=== PATIENT | female | born 1990 | race Caucasian/White ===

== ENCOUNTER 2016-10-19 20:04 | Emergency (ER) | payer OTHER ==
[2016-10-19 20:12] VITALS: BP 158/88
--- NOTE | 2016-10-19 20:59 | UC ---
Complaint Female HPI - HPI Summary HPI Summary: takes Provera for DUB--Last dose was now has a very heavy mensural flow and cramping-- - History Of Current Complaint Chief Complaint: UCGU Stated Complaint: PERSONAL Time Seen by Provider: 10/19/16 20:41 Hx Obtained From: Patient Hx Last Menstrual Period: current ?: No Onset/Duration: Sudden Onset, Lasting Days, Still Present Timing: Constant Severity Initially: Moderate Severity Currently: Moderate Pain Intensity: 8 Pain Scale Used: 0-10 Numeric Character: Cramping Aggravating Factor(s): Nothing Alleviating Factor(s): Nothing Associated Signs And Symptoms: Positive: Vaginal Bleeding/Discharge Related Hx: Similar Episode/Dx as: - chronic DUB, - 1, Para - 1 - Allergies/Home Medications Allergies/Adverse Reactions: Allergies Allergy/AdvReac Type Severity Reaction Status Date / Time No Known Allergies Allergy Verified 10/19/16 20:38 Home Medications: Home Medications Medroxyprogesterone Acetate [Medroxyprogesterone Aceta] 10 mg PO DAILY 10/19/16 [History Confirmed 10/19/16] Naproxen [Naproxen EC 500 MG TAB] PO BID PRN 10/19/16 [History] PMH/Surg Hx/FS Hx/Imm Hx Previously Healthy: No - DUB - Surgical History Surgical History: Yes Surgery Procedure, Year, and Place: left knee chipped cartilage repair - Family History Known Family History: Positive: None Family History: no cardio vascular issues reported in family lineage - Social History Occupation: Employed Full-time Lives: With Family Alcohol Use: None Substance Use Type: None Smoking Status (MU): Light Every Day Tobacco Smoker Type: Cigarettes Amount Used/How Often: 5 cigarettes daily Length of Time of Smoking/Using Tobacco: 7 YEARS Have You Smoked in the Last Year: Yes Household Exposure Type: Cigarettes Cessation Counseling: Counseled 3+Min - 10 Min - Immunization History Most Recent Influenza Vaccination: 02/16/15 Review of Systems Constitutional: Negative Skin: Negative Eyes: Negative ENT: Negative Respiratory: Negative Cardiovascular: Negative Gastrointestinal: Abdominal Pain - cramping Genitourinary: Negative Motor: Negative Neurovascular: Negative Musculoskeletal: Negative Neurological: Negative Psychological: Negative All Other Systems Reviewed And Are Negative: Yes Physical Exam Triage Information Reviewed: Yes Appearance: Well-Appearing, No Pain Distress, Well-Nourished Vital Signs: Initial Vital Signs Temp 98.6 F 10/19/16 20:07 Pulse 93 10/19/16 20:07 Resp 18 10/19/16 20:07 BP 158/88 10/19/16 20:07 Pulse Ox 100 10/19/16 20:07 Vital Signs Reviewed: Yes Eye Exam: Normal Eyes: Positive: Conjunctiva Clear. Negative: Conjunctiva Inflamed ENT Exam: Normal ENT: Positive: Normal ENT inspection, Hearing grossly normal. Negative: Nasal congestion, Nasal drainage, Trismus, Muffled/hoarse voice Dental Exam: Normal Neck exam: Normal Neck: Positive: Supple, Nontender Respiratory Exam: Normal Respiratory: Positive: Chest non-tender, No respiratory distress, No accessory muscle use Cardiovascular Exam: Normal Cardiovascular: Positive: RRR, Pulses Normal, Brisk Capillary Refill Abdominal Exam: Normal Abdomen Description: Positive: No Organomegaly, Soft, Other: - lower abdomen. Negative: CVA Tenderness (R), CVA Tenderness (L) Bowel Sounds: Positive: Present Musculoskeletal Exam: Normal Musculoskeletal: Positive: Strength Intact, ROM Intact, No Edema Neurological Exam: Normal Neurological: Positive: Alert, Muscle Tone Normal Psychological Exam: Normal Skin Exam: Normal Complaint Female Dx - Course Course Of Treatment: patient refused hormones-will take pain meds and follow with [facility] on Friday - Differential Dx/Diagnosis Differential Diagnosis/HQI/PQRI: Ovarian Cyst, Pelvic Inflammatory Disease, , Sexually Transmitted Disease, Other - DUB Provider Diagnoses: Dysfunctional Uterine Bleeding, Nicotine dependent Discharge - Discharge Plan Condition: Stable Disposition: HOME Prescriptions: HYDROcodone/ACETAMIN 5-325 MG* [Brusett 5-325 TAB*] 1 tab PO Q6H PRN #10 tab MDD 4 PRN Reason: Pain Patient Education Materials: Naproxen (By mouth), Dysfunctional Uterine Bleeding (ED), DASH Eating Plan (ED), Hypertension (ED) Forms: *Work Release Referrals: Renetta Yoder NP [Nurse Practitioner] - 10/21/16 Kole Gray MD [Primary Care Provider] - 2 Weeks
[2016-10-19] MEDS ORDERED: Ketorolac INJ* 60 MG/2 ML VIAL IM ONE (21:00)
[2016-10-19] MEDS ORDERED: HYDROcodone/ACETAMIN 5-325 MG* 1 TAB PO ONE (21:05)
== END 2016-10-19 21:14 | disposition home or self-care (01) ==
LOC: UCEAST 20:04
DX: N93.8 Other specified abnormal uterine and vaginal bleeding (principal); F17.210 Nicotine dependence, cigarettes, uncomplicated
CPT/HCPCS: 96372; 99212; G0463; J1885

== ENCOUNTER → 2016-10-30 09:40 | Emergency (ER) | payer OTHER ==
[~2016-10-30 09:40] MED LIST: Morphine INJ* 4 MG/ML 1 ML SYRINGE IV ONE; Ondansetron INJ* 2 MG/ML VIAL IV ONE
--- NOTE | 2016-10-30 10:56 | ED ---
GI/ HPI - HPI Summary HPI Summary: Pt here w/ vaginal bleeding x 4 months. Heavier and more painful in past 4 days. She has a h/o vaginal bleeding x 3months at a time on/off over the past 7 years, but 4 consecutive months is longest stretch for her. She had an U/S and labs last month. Reports she was told her uterine lining was thick and she was iron deficient - she has been taking iron PO for this. Fatigued but no haseeb chest pain, SOB, palpitations. [facility] put her on hormone therapy (provera) for 10 days which stopped bleeding but when she completed this course, her bleeding returned and was heavier. She was asked to try this again, but it did not stop bleeding. She then switched to another hormone ( control pill - levora) a few days ago which she reports has done nothing. She has had mild cramping, but this is worsening and she is now experiencing back cramping with heavy bleeding and clotting. She admits clots are a part of her menstrual cycle and cannot use tampons as clots get stuck in vaginal canal - wears pads instead. Urination is non-painful and BM's are normal for her. Denies fever, chills, N/V/D. No previous h/o [facility] pathology nor bleeding d/o. Had a pelvic exam last month as well w/ U/S and labs - pt notes nothing of concern was identified. - History of Current Complaint Chief Complaint: EDVaginalBleeding Time Seen by Provider: 10/30/16 10:44 Stated Complaint: VAG BLEEDING -4MONTHS Hx Obtained From: Patient Pain Intensity: 9 - Allergy/Home Medications Allergies/Adverse Reactions: Allergies Allergy/AdvReac Type Severity Reaction Status Date / Time No Known Allergies Allergy Verified 10/19/16 20:38 PMH/Surg Hx/FS Hx/Imm Hx Previously Healthy: Yes Endocrine/Hematology History: Reports: Hx Unexplained Bleeding - heavy, prolonged recurrent vaginal bleeding Denies: Hx Anticoagulant Therapy, Hx Blood Disorders, Hx Diabetes, Hx Thyroid Disease Cardiovascular History: Denies: Hx Hypertension Respiratory History: Denies: Hx Asthma, Hx Chronic Obstructive Pulmonary Disease (COPD) GI History: Denies: Hx Ulcer History: Reports: Other Problems/Disorders - heavy, prolonged recurring menstrual cycles - Surgical History Surgery Procedure, Year, and Place: left knee chipped cartilage repair Infectious Disease History: No Infectious Disease History: Denies: Hx Clostridium Difficile, Hx Hepatitis, Hx Human Immunodeficiency Virus (HIV), Hx of Known/Suspected MRSA, Hx Shingles, Hx Tuberculosis, Hx Known/ Suspected VRE, Hx Known/Suspected VRSA, History Other Infectious Disease, Traveled Outside the [place] in Last 30 Days - Family History Known Family History: Positive: None Family History: no cardio vascular issues reported in family lineage - Social History Alcohol Use: None Hx Substance Use: No Substance Use Type: Reports: None Hx Tobacco Use: Yes Smoking Status (MU): Current Every Day Smoker Type: Cigarettes Amount Used/How Often: 5 cigarettes daily Length of Time of Smoking/Using Tobacco: 7 YEARS Have You Smoked in the Last Year: Yes Review of Systems Positive: Fatigue Cardiovascular: Negative Negative: Palpitations, Chest Pain Negative: Shortness Of Breath, Cough Positive: Abdominal Pain - see HPI. Negative: Vomiting, Diarrhea, Nausea Positive: see HPI Musculoskeletal: Negative Skin: Negative Negative: Bruising Neurological: Negative Psychological: Normal - concerned but exhausted and frustrated this continues All Other Systems Reviewed And Are Negative: Yes Physical Exam Triage Information Reviewed: Yes Vital Signs On Initial Exam: Initial Vitals Temp Pulse Resp BP Pulse Ox 96.9 F 88 17 137/99 100 10/30/16 09:51 10/30/16 09:51 10/30/16 09:51 10/30/16 09:51 10/30/16 09:51 Vital Signs Reviewed: Yes Appearance: Positive: Well-Appearing, Pain Distress, Obese Skin: Positive: Warm, Dry - no signs of ecchymosis Head/Face: Positive: Normal Head/Face Inspection Eyes: Positive: Normal, EOMI, Conjunctiva Clear ENT: Positive: Hearing grossly normal Respiratory/Lung Sounds: Positive: Clear to Auscultation, Breath Sounds Present Cardiovascular: Positive: Normal, RRR Abdomen Description: Positive: Nontender - palpation does not make pain worse - reports pain is in lower pelvic region, Soft, Distended - mild. Negative: Guarding Bowel Sounds: Positive: Present Pelvic Exam: Positive: other - deferred Musculoskeletal: Positive: Normal, Strength/ROM Intact Neurological: Positive: Normal, Sensory/Motor Intact, Alert, Oriented to Person Place, Time, CN Intact II-III Psychiatric: Positive: Normal Diagnostics - Vital Signs Vital Signs Temp Pulse Resp BP Pulse Ox 10/30/16 09:55 96.9 F 88 17 137/99 100 10/30/16 09:51 96.9 F 88 17 137/99 100 - Laboratory Result Diagrams: 10/30/16 10:45 10/30/16 10:45 Lab Statement: Any lab studies that have been ordered have been reviewed, and results considered in the medical decision making process. GIGU Course/Dx - Course Course Of Treatment: Spoke w/ Dr. Solorzano - no pelvic exam necessary - pt to f/u Friday. If better, continue OBC and f/u as directed (pt already hsa appt w/ [facility] scheduled). If same or worse, call Friday and will consider D&C. Pt agrees w/ plan and undrestands danger s/sx of when to return to ED - Diagnoses Provider Diagnoses: Menorrhagia, Dysmenorrhea - Physician Notifications Discussed Care Of Patient With: Dr. Solorzano - continue OBC and f/u Friday Discharge - Discharge Plan Condition: Stable Disposition: HOME Prescriptions: oxyCODONE/Acetamin 5/325 MG* [Percocet 5/325 TAB*] 1 tab PO Q6H PRN #20 tab MDD 4 PRN Reason: Pain Patient Education Materials: Menorrhagia (ED) Forms: *Work Release Referrals: Ed Solorzano MD [Medical Doctor] - Additional Instructions: Continue your control pills as directed Rest and hydrate You were also given percocet, a narcotic pain medication, that may be used temporarily for pain control. You may stop taking NSAID's to reduce bleeding. You may also apply a heat pack and/or take a hot bath for relief. You may apply Salonpas pain patches for lower back pain as needed. Continue to take your iron supplements. Follow-up with Dr. Solorzano Friday *If bleeding is improving in any capacity, you may call to notify them and follow-up as initially indicated *If bleeding continues to be heavy or worse, contact office to share this information - D&C will be considered at this time If D&C is not performed Friday, you will most likely have a biopsy once your vaginal bleeding stops *If you develop fever, chills, shortness of breath, tachycardia (heart rate > 100 beats per minute while resting), vomiting or worsening of pain despite recommendations, return to ED
[2016-10-30 11:30] LABS: Hematocrit 35 % (35-47); Hemoglobin 11.3 g/dl (12.0-16.0); Mean Corpuscular HGB Conc 33 g/dl (31-36); Mean Corpuscular Hemoglobin 25 pg (27-31); Mean Corpuscular Volume 77 fL (80-97); Mean Platelet Volume 10 um3 (7.4-10.4); Red Blood Count 4.47 10^6/ul (4.0-5.4); Red Cell Distribution Width 17 % (10.5-15); White Blood Count 7.4 10^3/ul (3.5-10.8)
[2016-10-30 11:41] LABS: Albumin 4.1 g/dL (3.2-5.2); BUN/Creatinine Ratio 8.8 (8-20); Calcium 9.1 mg/dL (8.6-10.3); EGFR African American 109.8 (>60); EGFR Non-African American 85.4 (>60); Globulin 3.1 g/dL (2-4); Potassium 3.7 mmol/L (3.5-5.0); Total Bilirubin 0.5 mg/dL (0.2-1.0); Total Protein 7.2 g/dL (6.4-8.9)
[2016-10-30 11:55] LABS: TSH (Thyroid Stimulating Horm) 2.82 mcIU/mL (0.34-5.60)
[2016-10-30 16:50] LABS: Urine Bacteria Absent (Absent); Urine Bilirubin Negative (Negative); Urine Glucose Negative (Negative); Urine Nitrite Negative (Negative)
[2016-10-30 16:51] VITALS: BP 115/63
== END | disposition home or self-care (01) ==
LOC: ED 09:40
DX: N94.6 Dysmenorrhea, unspecified (principal); N92.0 Excessive and frequent menstruation with regular cycle
CPT/HCPCS: 36415; 80053; 81003; 81015; 83540; 83550; 84443; 85025; 85610; 85730; 96374; 96375; 99283; J2270; J2405

== ENCOUNTER 2016-11-01 11:57 | Day surgery (SDC) | payer OTHER ==
[~2016-11-01 11:57] MED LIST changes: +Buffered Lidocaine 0.9% SYRIN* 5 ML/SYR SYRINGE INTRADERM ONE; +Famotidine IV* 10 MG/ML 2 ML (20 mg) IV ONE; +Metoclopramide IV* 5 MG/ML 2 ML VIAL IV SLOW PU ONE; -Morphine INJ* 4 MG/ML 1 ML SYRINGE IV ONE; -Ondansetron INJ* 2 MG/ML VIAL IV ONE
[2016-11-01] MEDS ORDERED: Metoclopramide IV* 5 MG/ML 2 ML VIAL ONE (12:43)
[2016-11-01] MEDS ORDERED: Famotidine IV* 10 MG/ML 2 ML (20 mg) ONE ×2 (12:44→12:47)
[2016-11-01] MEDS ORDERED: Midazolam* 1 MG/ML 5 ML VIAL (5 MG) ONE (12:49)
[2016-11-01] MEDS ORDERED: fentaNYL* 50 MCG/ML 2 ML VIAL (100 MCG VIAL) ONE (12:49)
[2016-11-01] MEDS ORDERED: Chloroprocaine 2%* 20 ML VIAL ONE (12:50)
[2016-11-01] MEDS ORDERED: Ondansetron INJ* 2 MG/ML VIAL ONE (12:53)
[2016-11-01] MEDS ORDERED: Ketorolac INJ* 30 MG/ML 1 ML VIAL ONE (12:53)
[2016-11-01 13:05] LABS: Hematocrit 32 % (35-47); Hemoglobin 10.3 g/dl (12.0-16.0); Mean Corpuscular HGB Conc 32 g/dl (31-36); Mean Corpuscular Hemoglobin 25 pg (27-31); Mean Corpuscular Volume 77 fL (80-97); Mean Platelet Volume 10 um3 (7.4-10.4); Red Blood Count 4.11 10^6/ul (4.0-5.4); Red Cell Distribution Width 17 % (10.5-15); White Blood Count 6.9 10^3/ul (3.5-10.8)
[2016-11-01] MEDS ORDERED: Silver Nitrate/Potassium Nitr* 1 EA STICK ONE (14:01)
[2016-11-01] MEDS ORDERED: Propofol* 10 MG/ML 20 ML BTL IV PUSH ONE (14:35)
[2016-11-01] MEDS ORDERED: Lidocaine 2% PF * 5 ML VIAL ONE (14:35)
[2016-11-01 18:34] VITALS: BP 107/75
--- NOTE | 2016-11-05 07:40 | OP ---
DATE OF O[facility] DATE OF : 86 SURGEON: Ed Solorzano MD ANESTHESIOLOGIST: Dr. Franklin. ANESTHESIA: Spinal. PRE-OP DIAGNOSIS: Persistent menorrhagia. POST-OP DIAGNOSIS: Persistent menorrhagia. OPERATIVE PROCEDURE: Dilation and curettage. INDICATIONS: This patient is a 26-year-old 1, para 1, who presented to me earlier this week after having seen another provider previously. The patient reports a history in the past of oligomenorrhea with periods only about every 3 to 4 months. Most recently, she started to have bleeding that went on for several weeks and was persistent. She was given medroxyprogesterone daily for 10 days, which did stop the bleeding; however, when she discontinued the medication as directed, the bleeding restarted and then would not stop. Progesterone did not improve her symptoms, so she was started on high-dose oral contraceptives earlier this week. After 3 days, the patient was having only heavier bleeding, having to change her pads every hour. Considering this, we decided to proceed with a dilation and curettage to hopefully at least temporarily improve her bleeding while getting a sampling of the endometrium for pathology. She was extensively counseled and consent was signed. ESTIMATED BLOOD LOSS: 30 cc. URINE OUTPUT: 200 cc. IV FLUIDS: 1000 cc lactated Ringer's. MATERIALS TO LAB: Endometrial curettings. FINDINGS: Moderate amount of endometrial tissue obtained. Uterus normal size with no significant abnormalities palpable. COMPLICATIONS: None. DESCRIPTION OF PROCEDURE: The risks, benefits, and alternatives were described to the patient and informed consent was obtained. The patient was taken to the operating room with IV running, where spinal anesthesia was induced and found to be adequate. The patient was prepped and draped in normal sterile fashion in the high lithotomy position with Levi stirrups. A time-out was performed. The bladder was emptied. A bivalved speculum was placed into the vagina and a single-tooth tenaculum was placed in the anterior cervix. The cervix was then gently dilated using Hanks dilators to about size 30. At that time, a medium banjo curette was advanced through the cervix into the uterine cavity without difficulty. The uterus had sounded to about 8.5 cm. A curettage of the entire endometrial cavity was performed with the curettings collected on Telfa. Care was taken to try to sample and curette as much endometrium as possible without potentially causing scarring through the endometrium. Once the curettage was complete, the tenaculum was removed from the cervix. There was good hemostasis present after placing some pressure on the cervix. The speculum was then removed and the patient was returned to the supine position. The patient tolerated the procedure well. Sponge, lap, and needle counts were correct x2. [id number]/CPS #: [id number] MTDD
== END 2016-11-01 16:45 | disposition home or self-care (01) ==
LOC: OR 11:57
PROVIDERS: ATTEND Obstetrics & Gynecology
DX: N92.0 Excessive and frequent menstruation with regular cycle (principal); F17.210 Nicotine dependence, cigarettes, uncomplicated; E66.9 Obesity, unspecified
CPT/HCPCS: 36415; 85027; 85610; 86850; 86900; 86901; 88305; A9270-GY; J1885; J2250; J2400; J2405; J2704; J3010

== ENCOUNTER 2016-11-17 15:26 | Emergency (ER) | payer OTHER ==
[2016-11-17] MEDS ORDERED: HYDROcodone/ACETAMIN 5-325 MG* 1 TAB PO ONE (16:48)
[2016-11-17 18:14] LABS: Hematocrit 30 % (35-47); Hemoglobin 9.6 g/dl (12.0-16.0); Mean Corpuscular HGB Conc 32 g/dl (31-36); Mean Corpuscular Hemoglobin 25 pg (27-31); Mean Corpuscular Volume 78 fL (80-97); Mean Platelet Volume 10 um3 (7.4-10.4); Red Blood Count 3.85 10^6/ul (4.0-5.4); Red Cell Distribution Width 17 % (10.5-15); White Blood Count 8.4 10^3/ul (3.5-10.8)
[2016-11-17 18:29] LABS: EGFR Non-African American 85.4 (>60); Potassium 4.1 mmol/L (3.5-5.0)
[2016-11-17 18:30] LABS: Calcium 9.1 mg/dL (8.6-10.3); EGFR African American 109.8 (>60)
[2016-11-17] MEDS ORDERED: oxyCODONE/Acetamin 5/325 MG* TAB PO ONE (19:40)
--- NOTE | 2016-11-17 19:40 | RAD ---
INDICATION: Endometritis. Recent biopsy. COMPARISON: September 20, 2016 TECHNIQUE: Longitudinal and transverse transvaginal scans of the pelvis were obtained. FINDINGS: Uterus: The uterus is normal in size. There are no focal masses. The uterus measures 9.5 x 3.1 x 6.1 cm. Endometrial thickness: The endometrial thickness is measured at 6 cm. There is trace fluid in endometrial canal. Free fluid: There is no significant free fluid . Ovaries: The ovaries are normal in size. The right ovary measures 3.5 x 2.0 x 2.2 cm. The left ovary measures 3.1 x 2.3 x 2.5 cm. . Doppler interrogation demonstrates flow to each ovary. Other: None IMPRESSION: TRACE FLUID IN THE ENDOMETRIAL CANAL, OTHERWISE NEGATIVE
[2016-11-17] MEDS ORDERED: Al Hydrox/Mg Hydrox/Simet LIQ* 30 ML UDC PO ONE (19:43)
[2016-11-17] MEDS ORDERED: Lidocaine 2% VISCOUS* 15 ML UDC PO ONE (19:43)
[2016-11-17 20:32] LABS: Urine Bacteria Absent (Absent); Urine Bilirubin Negative (Negative); Urine Glucose Negative (Negative); Urine Nitrite Negative (Negative)
[2016-11-17 20:33] VITALS: BP 123/86
[2016-11-17] MEDS ORDERED: Sulfamethox/Trimethoprim DS 800/160* TAB PO ONE (20:39)
--- NOTE | 2016-11-24 23:25 | ED ---
Kiki Barnhart Auryana, scribed for Wilberto Wright MD on 11/17/16 at 1834 . Abdominal Pain/Female - HPI Summary HPI Summary: 26 year old female presents with abdominal pain and vaginal bleeding s/p D&C . Patient states that she has abdominal and back pain started on 11/15/16 worse since 2 days ago. She reports that she worked a long shift on Friday and states that she had to wear a pad and a tampon to prevent any leakage - believes she may be "backed up" and that's what is causing the abdominal pain. The abdominal pain is located diffusely down the abdomen and radiating into the legs. She also c/o of back pain. OTC pain medication do not alleviate the pain. She does report a history of painful menstrual cycles. PMHx is significant for dysmenorrhea. - History of Current Complaint Chief Complaint: EDVaginalBleeding Stated Complaint: ABD/BACK PAIN-D&C ON 11/15 Time Seen by Provider: 11/17/16 16:27 Hx Obtained From: Patient Hx Last Menstrual Period: current Onset/Duration: Gradual Onset Timing: Intermittent Episode Lasting Severity Initially: Moderate Severity Currently: Moderate Pain Intensity: 10 Pain Scale Used: 0-10 Numeric Location: Diffuse Radiates: Yes Radiates to: Other - into the bilateral legs Alleviating Factor(s): Nothing Associated Signs and Symptoms: Positive: Back Pain, Vaginal Bleeding - heavy Simlar Episode/Dx as:: SEE HPI Allergies/Adverse Reactions: Allergies Allergy/AdvReac Type Severity Reaction Status Date / Time No Known Allergies Allergy Verified 11/01/16 12:12 PMH/Surg Hx/FS Hx/Imm Hx Endocrine/Hematology History: Reports: Hx Unexplained Bleeding - heavy, prolonged recurrent vaginal bleeding Denies: Hx Anticoagulant Therapy, Hx Blood Disorders, Hx Diabetes, Hx Thyroid Disease Cardiovascular History: Denies: Hx Hypertension Respiratory History: Denies: Hx Asthma, Hx Chronic Obstructive Pulmonary Disease (COPD) GI History: Denies: Hx Ulcer History: Reports: Other Problems/Disorders - heavy, prolonged recurring menstrual cycles - Surgical History Surgery Procedure, Year, and Place: left knee chipped cartilage repair Infectious Disease History: No Infectious Disease History: Denies: Hx Clostridium Difficile, Hx Hepatitis, Hx Human Immunodeficiency Virus (HIV), Hx of Known/Suspected MRSA, Hx Shingles, Hx Tuberculosis, Hx Known/ Suspected VRE, Hx Known/Suspected VRSA, History Other Infectious Disease, Traveled Outside the [place] in Last 30 Days - Family History Known Family History: Negative: Cardiac Disease Family History: no cardio vascular issues reported in family lineage - Social History Alcohol Use: None Hx Substance Use: No Substance Use Type: Reports: None Hx Tobacco Use: Yes Smoking Status (MU): Current Some Day Smoker Type: Cigarettes Amount Used/How Often: 5 cigarettes daily Length of Time of Smoking/Using Tobacco: 7 YEARS Have You Smoked in the Last Year: Yes Review of Systems Constitutional: Negative Negative: Fever, Chills Eyes: Negative Negative: Erythema ENT: Negative Negative: Sore Throat Cardiovascular: Negative Negative: Chest Pain Respiratory: Negative Negative: Shortness Of Breath, Cough Positive: Abdominal Pain. Negative: Vomiting, Nausea Positive: other - vaginal bleeding . Negative: dysuria, hematuria Positive: Other - back pain . Negative: Myalgia, Edema Skin: Negative Negative: Rash Neurological: Negative, Other - no dizziness Psychological: Normal All Other Systems Reviewed And Are Negative: Yes Physical Exam - Summary Physical Exam Summary: Constitutional: Well-developed, Well-nourished, Alert. (-) Distressed Skin: Warm, Dry HENT: Normocephalic; Atraumatic Eyes: Conjunctiva normal Neck: Musculoskeletal ROM normal neck. (-) JVD, (-) Stridor, (-) Tracheal deviation Cardio: Rhythm regular, rate normal, Heart sounds normal; Intact distal pulses; The pedal pulses are 2+ and symmetric. Radial pulses are 2+ and symmetric. (-) Murmur Pulmonary/Chest wall: Effort normal. (-) Respiratory distress, (-) Wheezes, (-) Rales Abd: Soft, (+) Suprapubic and bilateral adnexal pain, (-) Distension, (-) Guarding, (-) Rebound Musculoskeletal: (-) Edema Lymph: (-) Cervical adenopathy Neuro: Alert, Oriented x3 Psych: Mood and affect Normal Triage Information Reviewed: Yes Vital Signs On Initial Exam: Initial Vitals Temp Pulse Resp BP Pulse Ox 97.8 F 128 16 145/88 100 11/17/16 15:32 11/17/16 15:32 11/17/16 15:32 11/17/16 15:32 11/17/16 15:32 Vital Signs Reviewed: Yes Diagnostics - Vital Signs Vital Signs Temp Pulse Resp BP Pulse Ox 11/17/16 16:11 90 16 113/69 97 11/17/16 15:32 97.8 F 128 16 145/88 100 - Laboratory Lab Results: Lab Results 11/17/16 Range/Units 18:10 WBC 8.4 (3.5-10.8) 10^3/ul RBC 3.85 L (4.0-5.4) 10^6/ul Hgb 9.6 L (12.0-16.0) g/dl Hct 30 L (35-47) % MCV 78 L (80-97) fL MCH 25 L (27-31) pg MCHC 32 (31-36) g/dl RDW 17 H (10.5-15) % Plt Count 307 (150-450) 10^3/ul MPV 10 (7.4-10.4) um3 Result Diagrams: 11/17/16 18:10 11/17/16 18:10 Lab Statement: Any lab studies that have been ordered have been reviewed, and results considered in the medical decision making process. - Additional Comments Diagnostic Additional Comments: US TRANSVAGINAL - IMPRESSION: TRACE FLUID IN THE ENDOMETRIAL CANAL, OTHERWISE NEGATIVE Re-Evaluation - Re-Evaluation First Eval Re-Evaluation Time: 16:49 - patient is having lower ABD pain - will mediate as needed Abdominal Pain Fem Course/Dx - Course Course Of Treatment: 26 year old female presents with abdominal pain and vaginal bleeding s/p D&C 11/01/16. Patient states that she has abdominal and back pain started on 11/15/16 worse since 2 days ago. She reports that she worked a long shift on Friday and states that she had to wear a pad and a tampon to prevent any leakage - believes she may be "backed up" and that's what is causing the abdominal pain. The abdominal pain is located diffusely down the abdomen and radiating into the legs. She also c/o of back pain. OTC pain medication do not alleviate the pain. She does report a history of painful menstrual cycles. PMHx is significant for dysmenorrhea. NML WBC - no evidence for endometritis. US TRANSVAGINAL - IMPRESSION: TRACE FLUID IN THE ENDOMETRIAL CANAL, OTHERWISE NEGATIVE. DDx: fibroids, painful menstrual cycles , dysmenorrhea. Dx: dysmenorrhea. and will discharge home with F/U to Dr. Solorzano - Diagnoses Differential Diagnosis: Positive: Other - dysmenorrhea, fibroids, painful menstrual cycles Provider Diagnoses: Dysmenorrhea, Urinary tract infection Discharge - Discharge Plan Condition: Stable Disposition: OTHER Discharge Disposition Comment: SIGNOUT TO DR. MEJIA AT 19:00 PENDING TRANSVAGINAL US. Prescriptions: Sulfamethox/Trimethoprim DS* [Bactrim DS 800/160 TAB*] 1 tab PO BID #20 tab oxyCODONE/Acetamin 5/325 MG* [Percocet 5/325 TAB*] 1 tab PO Q6H PRN #10 tab MDD 4 PRN Reason: Pain Patient Education Materials: Dysmenorrhea (ED), Urinary Tract Infection in Women (ED) Referrals: Ed Solorzano MD [Medical Doctor] - 2 Days Additional Instructions: RETURN TO THE EMERGENCY DEPARTMENT FOR CHANGING OR WORSENING SYMPTOMS The documentation as recorded by the Kiki akhtar Auryana accurately reflects the service I personally performed and the decisions made by Kyle son Jerry, MD.
== END 2016-11-17 20:15 ==
LOC: ED 15:26
DX: N94.6 Dysmenorrhea, unspecified (principal); N39.0 Urinary tract infection, site not specified; R10.9 Unspecified abdominal pain; M54.9 Dorsalgia, unspecified
CPT/HCPCS: 36415; 76830; 80048; 81003; 81015; 85027; 87086; 99283; A9270-GY

== ENCOUNTER 2017-12-16 09:41 | Emergency (ER) | payer SELFPAY ==
[2017-12-16 09:59] VITALS: BP 137/92
--- NOTE | 2017-12-16 10:21 | UC ---
Dental HPI - HPI Summary HPI Summary: 27 y/o female presents to the urgent care c/o left lower jaw pain s/p dental fillings in 05/2017 at [facility]. pt reports she started w/ dental pain last week and she went to the free clinic and she was Rx PCN 500mg PO and Diflucan PO. she thought it was for pain. However pain has worsen for the past 2 days. Her health insurance becomes active tomorrow so she has an appt w/ Dentist tomorrow. She has been taking Ibuprofen 400mg PO for pain w/o any improvement. Last dose taken about 2 hrs ago. Pain is 10/10 w/ no swelling radiating to the left ear. Pt denies fever, SALMON, trismus, SOB, chest pain, abdominal pain, N/V/D. - History of Current Complaint Chief Complaint: UCDentalProblem Stated Complaint: DENTAL PAIN Time Seen by Provider: 12/16/17 10:20 Hx Obtained From: Patient Hx Last Menstrual Period: 11/09/17 Onset/Duration: Gradual Onset, Lasting Weeks - 1 week, Still Present, Worse Since - 2 days Severity: Moderate Pain Intensity: 10 Pain Scale Used: 0-10 Numeric Aggravating Factor(s): Cold, Chewing Alleviating Factor(s): OTC Meds Related History: Previous Dental Care on Same Tooth - fillings - Allergies/Home Medications Allergies/Adverse Reactions: Allergies Allergy/AdvReac Type Severity Reaction Status Date / Time No Known Allergies Allergy Verified 12/16/17 10:00 Home Medications: Home Medications Diclofenac Sodium EC TAB* [Voltaren EC TAB*] 25 mg PO BID 12/16/17 [History Confirmed 12/16/17] Penicillin VK 500 MG TAB(NF) [Penicillin VK 500 mg Tab] 500 mg PO QID 12/16/17 [ History Confirmed 12/16/17] PMH/Surg Hx/FS Hx/Imm Hx Previously Healthy: Yes - Pt denies PMHX Other History Of: Negative For: Anticoagulant Therapy - Surgical History Surgical History: Yes Surgery Procedure, Year, and Place: left knee chipped cartilage repair - Family History Known Family History: Positive: Unknown - Pt is adopted Negative: Cardiac Disease - Social History Occupation: Employed Full-time Lives: With Family Alcohol Use: None Substance Use Type: None Smoking Status (MU): Current Some Day Smoker Type: Cigarettes Amount Used/How Often: 5 cigarettes daily Length of Time of Smoking/Using Tobacco: 7 YEARS Have You Smoked in the Last Year: Yes Household Exposure Type: Cigarettes - Immunization History Most Recent Influenza Vaccination: 02/16/15 Review of Systems Constitutional: Negative Skin: Negative Eyes: Negative ENT: Dental Pain - left lower jaw Respiratory: Negative Cardiovascular: Negative Gastrointestinal: Negative Genitourinary: Negative Motor: Negative Neurovascular: Negative Musculoskeletal: Negative Neurological: Negative Psychological: Negative Is Patient Immunocompromised?: No All Other Systems Reviewed And Are Negative: Yes Physical Exam - Summary Physical Exam Summary: Vital Signs Reviewed: Yes General: well developed. well nourished female sitting in the examining table w/ o any apparent distress Eyes: Positive: Conjunctiva Clear - PERRLA, EOMI, fundi grossly normal ENT: Positive: Normal ENT inspection, Hearing grossly normal, Pharyngeal erythema, TMs normal, Uvula midline. Negative: Tonsillar swelling, Tonsillar exudate, Trismus Dental: Positive: Percussion Tenderness @ - molar 18 and 19 w/ fillings, No abscess dental abscess observed, Cervical Lymphadenopathy - B/L anterior, Neck: Positive: Supple, Nontender Respiratory: Positive: Chest non-tender, Lungs clear, Normal breath sounds, No respiratory distress Cardiovascular: Positive: RRR, No Murmur, Pulses Normal, Brisk Capillary Refill Abdomen Description: Positive: Nontender, No Organomegaly, Soft. Negative: CVA Tenderness (R), CVA Tenderness (L) Bowel Sounds: Positive: Present Musculoskeletal: Positive: Strength Intact, ROM Intact, No Edema Neurological Exam: Normal Psychological Exam: Normal Skin Exam: Normal Triage Information Reviewed: Yes Vital Signs: Initial Vital Signs Temp 98 F 12/16/17 09:56 Pulse 70 12/16/17 09:56 Resp 17 12/16/17 09:56 BP 137/92 12/16/17 09:56 Pulse Ox 100 12/16/17 09:56 Dental Complaint Course/Dx - Course Course Of Treatment: 27 y/o female presents to the urgent care c/o left lower jaw pain s/p dental fillings in 05/2017 at [facility]. pt reports she started w/ dental pain last week and she went to the free clinic and she was Rx PCN 500mg PO and Diflucan PO. she thought it was for pain. However pain has worsen for the past 2 days. Her health insurance becomes active tomorrow so she has an appt w/ Dentist tomorrow. She has been taking Ibuprofen 400mg PO for pain w/o any improvement. Last dose taken about 2 hrs ago. Pain is 10/10 w/ no swelling radiating to the left ear. Pt denies fever, SALMON, trismus, SOB, chest pain, abdominal pain, N/V/D. Hx obtained. Pt w/ Percussion Tenderness @ - molar 18 and 19 w/ fillings on examination.Pt given viscous Lidocaine at the clinic to alleviate symptoms. Pt Rx viscous Lidocaine and Ibuprofen PO for pain . Pt strongly advised to f/u with Dentist as soon as possible in her appt tomorrow further evaluation and treatment and to finishe the PCP. Pt's BP is elevated today advised to decrease salt in diet, monitor BP and f/u with PCP for further management. Pt understood and agreed with plan of care. Left the clinic ambulating. - Differential Dx/Diagnosis Differential Diagnosis/Dx: Dental Abscess, Dental Caries, Fractured Tooth, Odontogenic Pain, Peridontic Disease, Peritonsillar Abcess Provider Diagnoses: 1- Dental pain at molar #18 and 19. 2- Elelvated BP w/o Hx of HTN Discharge - Sign-Out/Discharge Documenting (check all that apply): Patient Departure - D/C home - Discharge Plan Condition: Stable Disposition: HOME Prescriptions: Ibuprofen TAB* [Motrin TAB* 800 MG] 800 mg PO Q6H PRN #30 tab PRN Reason: Pain Lidocaine 2% VISCOUS* [Xylocaine 2% Viscous*] 15 ml SWISH SPIT Q4H PRN #1 btl PRN Reason: dental pain Patient Education Materials: Low-Sodium Diet (ED), Toothache (ED) Referrals: Kole Gray MD [Primary Care Provider] - 2 Days Additional Instructions: 1-Please continue taking Penicillin as directed to avoid resistance. Remember to take Diflucan PO if you develop a yeast infection 2- Take Ibuprofen PO as instructed after meals to alleviate pain and swelling. Do the Swish and spit Lidocaine as directed to alleviate pain. 3- F/u with your Dentist in tomorrow's appt for further treatment. 4- Your BP is elevated today. please decrease salt in your diet, monitor BP and if it continues to be elevated please f/u with your PCP for further management - Billing Disposition and Condition Condition: STABLE Disposition: Home
[2017-12-16] MEDS ORDERED: Lidocaine 2% VISCOUS* 15 ML UDC SWISH SPIT ONE (10:35)
== END 2017-12-16 10:46 | disposition home or self-care (01) ==
LOC: UCEAST 09:41
DX: K08.89 Other specified disorders of teeth and supporting structures (principal); R03.0 Elevated blood-pressure reading, without diagnosis of hypertension; F17.210 Nicotine dependence, cigarettes, uncomplicated
CPT/HCPCS: 99212; G0463

== ENCOUNTER 2018-04-07 10:05 | Emergency (ER) | payer OTHER ==
[2018-04-07 10:34] VITALS: BP 127/87
--- NOTE | 2018-04-07 10:37 | UC ---
Respiratory Complaint HPI - HPI Summary HPI Summary: 27 yo female presents with post nasal drip, dry cough, and right ear pain with drainage for the last 2-3 days. Is also having trouble with with a left lower tooth that is painful and is scheduled to be pulled on 04/20. She not been taking anything OTC. Denies fever or chills. - History of Current Complaint Chief Complaint: UCGeneralIllness Stated Complaint: DENTAL PAIN RESP ISSUE EAR PAIN Time Seen by Provider: 04/07/18 10:37 Hx Obtained From: Patient Hx Last Menstrual Period: 03/10/18 Onset/Duration: Gradual Onset Severity Initially: Moderate Severity Currently: Severe Pain Intensity: 10 Pain Scale Used: 0-10 Numeric - Allergies/Home Medications Allergies/Adverse Reactions: Allergies Allergy/AdvReac Type Severity Reaction Status Date / Time No Known Allergies Allergy Verified 04/07/18 10:28 PMH/Surg Hx/FS Hx/Imm Hx - Additional Past Medical History Additional PMH: None Other History Of: Negative For: Anticoagulant Therapy - Surgical History Surgical History: Yes Surgery Procedure, Year, and Place: left knee chipped cartilage repair. c- section 2009 - Family History Known Family History: Positive: Unknown - Pt is adopted Negative: Cardiac Disease Family History: no cardio vascular issues reported in family lineage - Social History Occupation: Employed Full-time Lives: With Family Alcohol Use: None Substance Use Type: None Smoking Status (MU): Current Some Day Smoker Type: Cigarettes Amount Used/How Often: 3 cigarettes daily Length of Time of Smoking/Using Tobacco: 7 YEARS Have You Smoked in the Last Year: Yes Household Exposure Type: Cigarettes - Immunization History Most Recent Influenza Vaccination: 02/16/15 Review of Systems All Other Systems Reviewed And Are Negative: Yes Constitutional: Positive: Negative Skin: Positive: Negative Eyes: Positive: Negative ENT: Positive: Dental Pain, Ear Ache Respiratory: Positive: Cough Cardiovascular: Positive: Negative Gastrointestinal: Positive: Negative Neurovascular: Positive: Negative Musculoskeletal: Positive: Negative Neurological: Positive: Negative Psychological: Positive: Negative Physical Exam - Summary Physical Exam Summary: GENERAL: NAD. WDWN. No pain distress. SKIN: No rashes, sores, lesions, or open wounds. HEENT: Head: AT/NC Eyes: EOM intact. Conjunctiva clear without inflammation or discharge. Ears: Hearing grossly normal. RIGHT TM with moderate erythema and bulging. Mild canal edema and white purulent drainage. Left ear WNL. Nose: Nasal mucosa pink and moist. NTTP maxillary and frontal sinus. Throat: Posterior oropharynx without exudates, erythema, or tonsillar enlargement. Uvula midline. NECK: Supple. Nontender. No lymphadenopathy. CHEST: CTAB. No r/r/w. No accessory muscle use. Breathing comfortably and in no distress. CV: RRR. Without m/r/g. Pulses intact. Cap refill <2seconds NEURO: Alert. PSYCH: Age appropriate behavior. Triage Information Reviewed: Yes Vital Signs: Initial Vital Signs Temp 97.5 F 04/07/18 10:28 Pulse 95 04/07/18 10:28 Resp 18 04/07/18 10:28 BP 127/87 04/07/18 10:28 Pulse Ox 97 04/07/18 10:28 Vital Signs Reviewed: Yes Dental: Positive: Percussion Tenderness @ - Tooth #20. Negative: Dental Fracture @, Abscess @, Cellulitis @, Cervical Lymphadenopathy, Bleeding UC Diagnostic Evaluation - Laboratory O2 Sat by Pulse Oximetry: 97 Respiratory Course/Dx - Course Course Of Treatment: Right otitis externa and otitis media. - Differential Dx/Diagnosis Provider Diagnoses: Right otitis externa. Right otitis media Discharge - Sign-Out/Discharge Documenting (check all that apply): Patient Departure All imaging exams completed and their final reports reviewed: No Studies - Discharge Plan Condition: Stable Disposition: HOME Prescriptions: Amoxicillin/Clavulanate TAB* [Augmentin TAB 875*] 875 mg PO BID #14 tab Ofloxacin 0.3% (Ear Drop)* [Floxin 0.3% OTIC.CARLEE (Ear Drop)] 5 drop RIGHT EAR BID #1 btl Patient Education Materials: Otitis Externa (DC), Ear Infection (ED) Forms: *Work Release Referrals: Kole Gray MD [Primary Care Provider] - Additional Instructions: If you develop a fever, shortness of breath, chest pain, new or worsening symptoms - please call your PCP or go to the ED. - Billing Disposition and Condition Condition: STABLE Disposition: Home
== END 2018-04-07 10:55 | disposition home or self-care (01) ==
LOC: UCEAST 10:05
DX: H60.91 Unspecified otitis externa, right ear (principal); H66.91 Otitis media, unspecified, right ear; F17.210 Nicotine dependence, cigarettes, uncomplicated
CPT/HCPCS: 99212; G0463

== ENCOUNTER 2019-08-10 09:13 | Emergency (ER) | payer OTHER ==
--- NOTE | 2019-08-10 10:23 | UC ---
Respiratory Complaint HPI - HPI Summary HPI Summary: 29 yo female presents with sinus symptoms. She tells me that for the last week her has been sick with sinus congestion and b/l ear pain. Over the last 3 days pt has developed sinus pain/pressure/congestion, right ear pain, sore throat, post nasal drip, and intermittent non-productive cough. She work sat [employer] and is still working despite COVID shutdown. She has had no known positive COVID contacts. She has not been taking anything OTC for her symptoms. She is currently 15 weeks with her second . She denies fever, chills, SOB, chest pain, n/v. No vaginal bleeding or discharge. No pelvic pain. - History of Current Complaint Stated Complaint: COUGH SORE THROAT SINUS ISSUE Time Seen by Provider: 08/10/19 10:22 Hx Obtained From: Patient Hx Last Menstrual Period: 03/10/18 Onset/Duration: Sudden Onset Severity Initially: Moderate Severity Currently: Moderate Pain Intensity: 5 Pain Scale Used: 0-10 Numeric - Allergies/Home Medications Allergies/Adverse Reactions: Allergies Allergy/AdvReac Type Severity Reaction Status Date / Time No Known Allergies Allergy Verified 08/10/19 10:35 Home Medications: Home Medications Amoxicillin PO (*) [Amoxicillin 875 MG (*)] 875 mg PO BID #14 tab 08/10/19 [Rx] Vitamin TAB* 1 tab PO DAILY 08/10/19 [History Confirmed 08/10/19] PMH/Surg Hx/FS Hx/Imm Hx - Additional Past Medical History Additional PMH: None Other History Of: Negative For: Anticoagulant Therapy - Surgical History Surgical History: Yes Surgery Procedure, Year, and Place: left knee chipped cartilage repair. c- section 2009 - Family History Known Family History: Positive: Unknown - Pt is adopted Negative: Cardiac Disease - Social History Lives: With Family Alcohol Use: None Substance Use Type: None Smoking Status (MU): Current Some Day Smoker Type: Cigarettes Amount Used/How Often: 3 cigarettes daily Length of Time of Smoking/Using Tobacco: 7 YEARS Have You Smoked in the Last Year: Yes Household Exposure Type: Cigarettes - Immunization History Most Recent Influenza Vaccination: 02/16/15 Review of Systems All Other Systems Reviewed And Are Negative: No Constitutional: Positive: Negative Skin: Positive: Negative Eyes: Positive: Negative ENT: Positive: Sore Throat, Ear Ache, Sinus Congestion Respiratory: Positive: Cough Cardiovascular: Positive: Negative Gastrointestinal: Positive: Negative Neurological/Mental Status: Positive: Negative Psychological: Positive: Negative Physical Exam - Summary Physical Exam Summary: GENERAL: NAD. WDWN. No pain distress. SKIN: No rashes, sores, lesions, or open wounds. HEENT: Head: AT/NC Eyes: EOM intact. Conjunctiva clear without inflammation or discharge. Ears: Hearing grossly normal. TMs intact, no bulging, erythema, or edema. Nose: Nasal mucosa mildly swollen and erythematous with yellow/ clear discharge. TTP maxillary and frontal sinus. Positive post nasal drip Throat: Posterior oropharynx without exudates, erythema, or tonsillar enlargement. Uvula midline. NECK: Supple. Nontender. No lymphadenopathy. CHEST: CTAB. No r/r/w. No accessory muscle use. Breathing comfortably and in no distress. CV: RRR. Pulses intact. NEURO: Alert. PSYCH: Age appropriate behavior. Triage Information Reviewed: Yes Vital Signs: Vital Signs: Temp Pulse Resp BP Pulse Ox 97.1 F 74 18 127/75 98 08/10/19 11:06 08/10/19 11:06 08/10/19 11:06 08/10/19 11:06 08/10/19 11:06 Laboratory Tests 08/10/19 08/10/19 11:05 11:07 Influenza A (Rapid) Negative Influenza B (Rapid) Negative Group A Strep Rapid Negative Vital Signs Reviewed: Yes Respiratory Course/Dx - Course Course Of Treatment: POC strep and flu negative. Discussed testing for COVID today and recommended testing given cough and , but pt declined as she does not want to be quarantined while awaiting testing and she does not believe she has COVID. Suspect viral cold/sinusitis, but given her will rx for amoxicillin and have her start this if no improvement in 2-3 more days of supportive care. - Differential Dx/Diagnosis Provider Diagnosis: Sinusitis Discharge ED - Sign-Out/Discharge Documenting (check all that apply): Patient Departure All imaging exams completed and their final reports reviewed: No Studies - Discharge Plan Condition: Stable Disposition: HOME Prescriptions: Amoxicillin PO (*) [Amoxicillin 875 MG (*)] 875 mg PO BID #14 tab Patient Education Materials: Sinusitis (ED) Forms: *Work Release Referrals: Kole Gray MD [Primary Care Provider] - Additional Instructions: STREP AND FLU NEGATIVE I recommend waiting 2-3 days to see if your symptoms improve and if they do not , may start antibiotic. If your symptoms change or worsen - I strongly recommend calling your OBGYN and/ or getting COVID testing. - Billing Disposition and Condition Condition: STABLE Disposition: Home - Attestation Statements Provider Attestation: This patient was not seen by me. I was available for consult. Chart reviewed. VIVIANE
--- OUTSIDE RECORDS SUMMARY | 2019-08-10 10:28 | XMS REPORT | Continuity of Care Document ---
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 [phone] Medicine Problems Active Problems Provider Date H/O: section Belkys Harrison CNM Onset: 07/06/2019 Social History Type Date Description Comments Sex Unknown Tobacco Use Start: Unknown Patient is a current smoker, smokes every day Allergies, Adverse Reactions, Alerts Description No Known Drug Allergies Medications Active Medications SIG Qnty Indications Ordering Provider Date Vitamin Unknown Immunizations Description No Information Available Vital Signs Date Vital Result Comment 07/06/2019 3:03pm BP Systolic 120 mmHg BP Diastolic 72 mmHg Height 68 inches 5'8" Weight 213.00 lb BMI (Body Mass Index) 32.4 kg/m2 Last Menstrual Period 5420962 2 Parity 1 11/26/2016 3:24pm BP Systolic 110 mmHg BP Diastolic 76 mmHg Height 68 inches 5'8" Weight 233.00 lb BMI (Body Mass Index) 35.4 kg/m2 Last Menstrual Period 2504109 1 Parity 1 Results Test Acquired Date Facility Test Result H/L Range Note Laboratory test 07/29/2019 [facility] Cytology <pending> [place] [address] [phone] Type And Screen 07/29/2019 [facility] [place] [address] Type [phone] Antibody Screen NEGATIVE CBC With No 07/29/2019 [facility] White Blood 7.3 10^3/uL Normal 3.5-10.8 [place] [address] Count [phone] Red Blood Count 4.16 10^6/uL Normal 3.70-4.87 Hemoglobin 12.2 g/dL Normal 12.0-16.0 Hematocrit 35 % Normal 35-47 Mean Corpuscular Volume 85 fL Normal 80-97 Mean Corpuscular Hemoglobin 29 pg Normal 27-31 Mean Corpuscular HGB Conc 34 g/dL Normal 31-36 Red Cell Distribution Width 15 % Normal 10-15 Platelet Count 219 10^3/uL Normal 150-450 Mean Platelet Volume 10.2 fL Normal 7.4-10.4 Laboratory test 07/29/2019 [facility] Syphillis Igg <pending> [place] [address] W/Reflex RPR [phone] Hepatitis B Surface Ag <pending> Hepatitis C Antibody <pending> Rubella Screen Immune Immune 1 Hemoglobin A1c 5.5 % Normal 4.0-5.6 2 1 JOHANNA W[place] 2 Therapeutic target for the treatment of diabetes mellitus patients is <7% HBA1C, and in selective patients <6.0%. Please refer to [place] [employer] diabetic care guidelines for further information. 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 07/29/2019 Z34.81 Encounter for supervision of other normal Belkys Harrison CNM , first trimester 07/29/2019 Z36.3 Encounter for screening for Richard Mc M.D. malformations 07/29/2019 Z36.3 Encounter for screening for Ultrasounds malformations 07/29/2019 Z36.9 Encounter for screening, Laboratory unspecified 07/06/2019 O26.91 related conditions, unspecified, Katie Kim MD first trimester 07/06/2019 Z34.81 Encounter for supervision of other normal Belkys Harrison CNM , first trimester 07/06/2019 O26.91 related conditions, unspecified, Ultrasounds first trimester Plan of Treatment Future Appointment(s):08/26/2019 2:20 pm - Richard Mc M.D. at [facility]11/26/2016 - ANG Collins-CN92.6 Irregular menstruation, unspecified Functional Status Description No Information Available Mental Status Description No Information Available Referrals Description No Information Available
--- OUTSIDE RECORDS SUMMARY | 2019-08-10 10:28 | XMS REPORT | Continuity of Care Document ---
:1990 External Reference #:[id number] Author Name Belkys Harrison CNM (transmitted by agent of provider Toya Orellana) Address [address] [place] [address] Care Team Providers Name Role Phone Kole Gray - Internal Care Team Information [employer] Software Development Engineer Medicine Problems Active Problems Provider Date H/O: [...] Mass Index) 32.4 kg/m2 Last Menstrual Period 4354441 2 Parity 1 11/26/2016 3:24pm BP Systolic 110 mmHg BP Diastolic 76 mmHg Height 68 inches 5'8" Weight 233.00 lb BMI (Body Mass Index) 35.4 kg/m2 Last Menstrual Period 6653380 1 Parity 1 Results Test Acquired Date Facility Test Result H/L Range Note Laboratory test 07/29/2019 [facility] Cytology <pending> [place] [address] [phone] Laboratory test 07/29/2019 [facility] Syphillis Igg <pending> [place] [address] W/Reflex RPR [phone] Hepatitis B Surface Ag <pending> Hepatitis C Antibody <pending> Rubella Screen <pending> Hemoglobin A1c <pending> Procedures Date Code Description Status 07/29/2019 63390 Nuchal Translucency Ultrasound /First Gestation Completed 07/06/2019 15413 OB Ultrasound First Trimester Completed Medical Devices Description No Information Available Encounters Description No Information Available Assessments Date Code Description Provider 07/29/2019 Z36.3 Encounter for screening for Ultrasounds malformations 07/29/2019 Z36.9 Encounter for screening, unspecified Laboratory 07/06/2019 O26.91 related conditions, unspecified, Katie Kim MD first trimester 07/06/2019 Z34.81 Encounter for supervision of other normal Belkys Harrison CNM , first trimester 07/06/2019 O26.91 related conditions, unspecified, Ultrasounds first trimester Plan of Treatment Future Appointment(s):08/26/2019 2:20 pm - Richard Mc M.D. at [facility]11/26/2016 - ANG Collins-CN92.6 Irregular menstruation, unspecified Functional Status Description No Information Available Mental Status Description No Information Available Referrals Description No Information Available
--- OUTSIDE RECORDS SUMMARY | 2019-08-10 10:28 | XMS REPORT | Continuity of Care Document ---
:1990 External Reference #:[id number] Author Name Belkys Harrison CNM (transmitted by agent of provider Elif Ray) Address [address] [place] [address] Care Team Providers Name Role Phone Kole Gray - Internal Care Team Information Public Defender [phone] Medicine Problems Active Problems Provider Date H/O: [...] Mass Index) 32.4 kg/m2 Last Menstrual Period 9080695 2 Parity 1 11/26/2016 3:24pm BP Systolic 110 mmHg BP Diastolic 76 mmHg Height 68 inches 5'8" Weight 233.00 lb BMI (Body Mass Index) 35.4 kg/m2 Last Menstrual Period 0236095 1 Parity 1 Results Test Acquired Date Facility Test Result H/L Range Note Laboratory test 07/29/2019 [facility] Cytology <pending> [place] [address] [phone] Type And Screen 07/29/2019 [facility] [place] [address] Type [phone] Antibody Screen NEGATIVE CBC With No 07/29/2019 [facility] White Blood 7.3 10^3/uL Normal 3.5-10.8 [place] [address] Count [phone] Red Blood Count 4.16 10^6/uL Normal 3.70-4.87 Hemoglobin 12.2 g/dL Normal 12.0-16.0 Hematocrit 35 % Normal 35-47 Mean Corpuscular Volume 85 fL Normal 80-97 Mean Corpuscular Hemoglobin 29 pg Normal 27-31 Mean Corpuscular HGB Conc 34 g/dL Normal 31-36 Red Cell Distribution Width 15 % Normal 10-15 Platelet Count 219 10^3/uL Normal 150-450 Mean Platelet Volume 10.2 fL Normal 7.4-10.4 Laboratory test 07/29/2019 [facility] Syphillis Igg <pending> [place] [address] W/Reflex RPR [phone] Hepatitis B Surface Ag <pending> Hepatitis C Antibody <pending> Rubella Screen Immune Immune 1 Hemoglobin A1c 5.5 % Normal 4.0-5.6 2 1 JOHANNA WASHINGTON 2 Therapeutic target for the treatment of diabetes mellitus patients is <7% HBA1C, and in selective patients <6.0%. Please refer to [place] [employer] diabetic care guidelines for further information. 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 07/29/2019 Z34.81 Encounter for supervision of other apolinar Harrison CNM , first trimester 07/29/2019 Z36.3 Encounter for screening for Richard Mc M.D. malformations 07/29/2019 Z36.3 Encounter for screening for Ultrasounds malformations 07/29/2019 Z36.9 Encounter for screening, Laboratory unspecified 07/06/2019 O26.91 related conditions, unspecified, Katie Kim MD first trimester 07/06/2019 Z34.81 Encounter for supervision of other normal Belkys Stork, CNM , first trimester 07/06/2019 O26.91 related conditions, unspecified, Ultrasounds first trimester Plan of Treatment Future Appointment(s):08/26/2019 2:20 pm - Richard Mc M.D. at [facility]11/26/2016 - ANG Collins-CN92.6 Irregular menstruation, unspecified Functional Status Description No Information Available Mental Status Description No Information Available Referrals Description No Information Available
--- OUTSIDE RECORDS SUMMARY | 2019-08-10 10:28 | XMS REPORT | Continuity of Care Document ---
:1990 External Reference #:[id number] Author Name Laboratory (transmitted by agent of provider María Rivers) Address [address] [place] [address] Care Team Providers Name Role Phone MandorogersKole ren - Internal Care Team Information Cosmetic Sales Consultant Medicine Problems Active Problems Provider Date H/O: [...] Mass Index) 32.4 kg/m2 Last Menstrual Period 5979294 2 Parity 1 11/26/2016 3:24pm BP Systolic 110 mmHg BP Diastolic 76 mmHg Height 68 inches 5'8" Weight 233.00 lb BMI (Body Mass Index) 35.4 kg/m2 Last Menstrual Period 8355946 1 Parity 1 Results Test Acquired Date Facility Test Result H/L Range Note Laboratory test 07/29/2019 [facility] Syphillis Igg <pending> [place] [address] W/Reflex RPR [phone] Hepatitis B Surface Ag <pending> Hepatitis C Antibody <pending> Rubella Screen <pending> Hemoglobin A1c <pending> Procedures Date Code Description Status 07/06/2019 08481 OB Ultrasound First Trimester Completed Medical Devices Description No Information Available Encounters Description No Information Available Assessments Date Code Description Provider 07/29/2019 Z36.9 Encounter for screening, unspecified Laboratory 07/06/2019 O26.91 related conditions, unspecified, Katie Kim MD first trimester 07/06/2019 Z34.81 Encounter for supervision of other normal Belkys Harrison CNM , first trimester 07/06/2019 O26.91 related conditions, unspecified, Ultrasounds first trimester Plan of Treatment No Information Available Functional Status Description No Information Available Mental Status Description No Information Available Referrals Description No Information Available
--- OUTSIDE RECORDS SUMMARY | 2019-08-10 10:28 | XMS REPORT | Continuity of Care Document ---
:1990 External Reference #:[id number] Author Name Laboratory (transmitted by agent of provider Elif Ray) Address [address] [place] [address] Care Team Providers Name Role Phone Kole Gray - Internal Care Team Information Airline Managerial Supervisor Medicine Problems Active Problems Provider Date H/O: [...] Mass Index) 32.4 kg/m2 Last Menstrual Period 4369681 2 Parity 1 11/26/2016 3:24pm BP Systolic 110 mmHg BP Diastolic 76 mmHg Height 68 inches 5'8" Weight 233.00 lb BMI (Body Mass Index) 35.4 kg/m2 Last Menstrual Period 4519397 1 Parity 1 Results Test Acquired Date Facility Test Result H/L Range Note Laboratory test 07/29/2019 [facility] Cytology <pending> [place] [address] [phone] Type And Screen 07/29/2019 [facility] [place] [address] Type [phone] Antibody Screen NEGATIVE CBC With No 07/29/2019 [facility] White Blood 7.3 10^3/uL Normal 3.5-10[place]8 [place] [address] Count [phone] Red Blood Count 4.16 10^6/uL Normal 3.70-4.87 Hemoglobin 12.2 g/dL Normal 12.0-16.0 Hematocrit 35 % Normal 35-47 Mean Corpuscular Volume 85 fL Normal 80-97 Mean Corpuscular Hemoglobin 29 pg Normal 27-31 Mean Corpuscular HGB Conc 34 g/dL Normal 31-36 Red Cell Distribution Width 15 % Normal 10-15 Platelet Count 219 10^3/uL Normal 150-450 Mean Platelet Volume 10.2 fL Normal 7.4-10.4 Laboratory test 07/29/2019 [facility] Syphillis Igg <pending> [place] [address] W/Reflex RPR [phone] Hepatitis B Surface Ag <pending> Hepatitis C Antibody <pending> Rubella Screen Immune Immune 1 Hemoglobin A1c 5.5 % Normal 4.0-5.6 2 1 JOHANNA WASHINGTON 2 Therapeutic target for the treatment of diabetes mellitus patients is <7% HBA1C, and in selective patients <6.0%. Please refer to [place] [employer] diabetic care guidelines for further information. Procedures Date Code Description Status 07/29/2019 57122 Nuchal Translucency Ultrasound /First Gestation Completed 07/06/2019 72146 OB Ultrasound First Trimester Completed Medical Devices [...] 2:20 pm - Richard Mc M.D. at [facility]11/26/2016 - Renetta Yoder, ANP-CN92.6 Irregular menstruation, unspecified Functional Status Description No Information Available Mental Status Description No Information Available Referrals Description No Information Available
[2019-08-10 11:06] VITALS: BP 127/75
[2019-08-10 11:19] LABS: Influenza A Molecular Negative (Negative); Influenza B Molecular Negative (Negative)
== END 2019-08-10 11:30 | disposition home or self-care (01) ==
LOC: UCEAST 09:13
DX: O26.892 Other specified pregnancy related conditions, second trimester (principal); J32.9 Chronic sinusitis, unspecified; H92.03 Otalgia, bilateral; Z3A.15 15 weeks gestation of pregnancy; Z72.0 Tobacco use
CPT/HCPCS: 87651; 99212; G0463

== ENCOUNTER 2020-01-31 06:03 | Inpatient (IN) ==
[~2020-01-31 06:03] MED LIST changes: -Buffered Lidocaine 0.9% SYRIN* 5 ML/SYR SYRINGE INTRADERM ONE; +Buffered Lidocaine 1% SYRIN 1 ml INTRADERM ONE; -Famotidine IV* 10 MG/ML 2 ML (20 mg) IV ONE; +Lactated Ringers 1000 ml BAG 1,000 ML IV SCH; -Metoclopramide IV* 5 MG/ML 2 ML VIAL IV SLOW PU ONE
[2020-01-31] MEDS ORDERED: ceFOXitin 2 GM IVPREMIX 2 GM/50 ML BAG IVPB ONE (06:30)
[2020-01-31] MEDS ORDERED: Morphine PF AMP (0.5MG/ML) 5 MG/10 ML AMP ONE (07:00)
[2020-01-31] MEDS ORDERED: fentaNYL 100 mcg/2 ml 50 MCG/ML VIAL ONE (07:00)
[2020-01-31] MEDS ORDERED: Ondansetron 4 mg VIAL 2 MG/ML 2 ml VIAL ONE (07:05)
[2020-01-31] MEDS ORDERED: Dexamethasone IV 4 MG/ML VIAL 1 ml VIAL ONE ×2 (07:05→08:44)
[2020-01-31] MEDS ORDERED: Phenylephrine 40 mcg/mL 10mL (400mcg) SYRINGE ONE (07:05)
[2020-01-31] MEDS ORDERED: Oxytocin 10 UNITS/ML 1 ML VIAL ONE (07:05)
[2020-01-31 07:27] LABS: Urine Benzodiazepine Screen None Detected (None Detect); Urine Cannabinoids Screen Presumptive Positive (None Detect); Urine Opiates Screen None Detected (None Detect)
[2020-01-31] MEDS ORDERED: DiMENhydriNATE IV 50 mg/ml 1 ml VIAL ONE (08:30)
[2020-01-31] MEDS ORDERED: Metoclopramide 5 MG/ML VIAL (10 mg) IV PRN (08:39)
[2020-01-31] MEDS ORDERED: fentaNYL 100 mcg/2 ml 50 MCG/ML VIAL IV PRN (08:39)
[2020-01-31] MEDS ORDERED: Naloxone 0.4 mg VIAL 0.4 mg/ml 1 ml VIAL IV PRN (08:39)
[2020-01-31] MEDS ORDERED: Oxytocin in LR 20 UNITS/1,000 ML BAG IVPB SCH ×2 (11:00→14:00)
[2020-01-31] MEDS ORDERED: Witch Hazel PAD JAR TOPICAL PRN (13:26)
[2020-01-31] MEDS ORDERED: Glycerin ADULT 2.4 gm SUPP PR PRN (13:26)
[2020-01-31] MEDS ORDERED: Dibucaine 1% OINT 28.35 GM TUBE PR PRN (13:26)
[2020-01-31] MEDS ORDERED: Lactated Ringers 1000 ml BAG 1,000 ML IV SCH (14:00)
[2020-02-01 06:03] LABS: ABS Basophils 0.1 10^3/ul (0-0.2); ABS Lymphocytes 2.2 10^3/ul (1.0-4.8); ABS Monocytes 0.7 10^3/ul (0-0.8); ABS Neutrophils 6.7 10^3/ul (1.5-7.7); Eosinophil % 0.4 %; Hematocrit 30 % (35-47); Hemoglobin 10.2 g/dL (12.0-16.0); Lymphocyte % 22.4 %; Mean Corpuscular HGB Conc 34 g/dL (31-36); Mean Corpuscular Hemoglobin 28 pg (27-31); Mean Corpuscular Volume 81 fL (80-97); Mean Platelet Volume 9.1 fL (7.4-10.4); Platelet Count 212 10^3/uL (150-450); Red Blood Count 3.66 10^6 /uL (3.70-4.87); Red Cell Distribution Width 17 % (10-15); White Blood Count 9.7 10^3/uL (3.5-10.8)
[2020-02-02 07:55] VITALS: BP 106/69
[2020-02-03] MEDS ORDERED: Scopolamine PATCH Remove NOTE PATCH OFF ONE (09:00)
== END 2020-02-02 13:30 | disposition home or self-care (01) | DRG 540 ==
LOC: MCHOB 06:03
PROVIDERS: ADMIT Obstetrics & Gynecology; ATTEND Obstetrics & Gynecology

== ENCOUNTER 2022-05-16 05:55 | Inpatient (IN) ==
[2022-05-16] MEDS ORDERED: Sodium Citrate/Citric Acid LIQ 15 ML UDC PO ONE (06:00)
[2022-05-16] MEDS ORDERED: Buffered Lidocaine 1% SYRIN 1 ml INTRADERM ONE (06:00)
[2022-05-16] MEDS ORDERED: Lactated Ringers 1000 ml BAG 1,000 ML IV SCH ×2 (06:00→10:00)
[2022-05-16] MEDS ORDERED: ceFOXitin 2 GM PREMIX 50 ML IVPB ONE (06:00)
[2022-05-16 06:56] LABS: ABS Lymphocytes 1.3 10^3/ul (1.0-4.8); ABS Monocytes 0.4 10^3/ul (0-0.8); ABS Neutrophils 4.9 10^3/ul (1.5-7.7); Eosinophil % 0.5 %; Hematocrit 36 % (35-47); Hemoglobin 11.9 g/dL (12.0-16.0); Mean Corpuscular HGB Conc 33 g/dL (31-36); Mean Corpuscular Hemoglobin 27 pg (27-31); Mean Corpuscular Volume 83 fL (80-97); Mean Platelet Volume 9.8 fL (7.4-10.4); Platelet Count 201 10^3/uL (150-450); Red Blood Count 4.35 10^6 /uL (3.70-4.87); Red Cell Distribution Width 17 % (10-15); White Blood Count 6.7 10^3/uL (3.5-10.8)
[2022-05-16] MEDS ORDERED: Morphine PF AMP (0.5MG/ML) 5 MG/10 ML AMP ONE ×2 (07:47→08:33)
[2022-05-16] MEDS ORDERED: Bupivacaine 0.5% SDV PF 30ML VIAL ONE (07:53)
[2022-05-16] MEDS ORDERED: Dexamethasone IV 4 MG/ML VIAL 1 ml VIAL ONE ×2 (08:20→08:21)
[2022-05-16] MEDS ORDERED: Ondansetron 4 mg VIAL 2 MG/ML 2 ml VIAL ONE (08:20)
[2022-05-16] MEDS ORDERED: Naloxone 0.4 mg VIAL 0.4 mg/ml 1 ml VIAL IV PRN (08:39)
[2022-05-16] MEDS ORDERED: fentaNYL 100 mcg/2 ml 50 MCG/ML VIAL IV PRN (08:39)
[2022-05-16] MEDS ORDERED: Acetaminophen IV 1 GM/100ML 1,000 MG/100 ML BAG IV ONE (08:40)
[2022-05-16] MEDS ORDERED: Acetaminophen IV 1 GM/100ML 1,000 MG/100 ML BAG IV PRN (08:41)
[2022-05-16] MEDS ORDERED: Naloxone 0.4 mg VIAL 0.4 mg/ml 1 ml VIAL IV PUSH PRN (08:41)
[2022-05-16] MEDS ORDERED: Ondansetron 4 mg VIAL 2 MG/ML 2 ml VIAL IV PRN (08:41)
[2022-05-16] MEDS ORDERED: Metoclopramide 5 MG/ML VIAL (10 mg) IV PRN (08:41)
[2022-05-16] MEDS ORDERED: Phenylephrine 40 mcg/mL 10mL (400mcg) SYRINGE ONE (08:54)
[2022-05-16 09:02] LABS: Urine Appearance Clear; Urine Bilirubin Negative (Negative); Urine Blood Negative (Negative); Urine Color Yellow; Urine Glucose Negative (Negative); Urine Ketones Negative (Negative); Urine Nitrite Negative (Negative); Urine Protein Negative (Negative); Urine Specific Gravity 1.014 (1.002-1.030); Urine Urobilinogen Negative (Negative)
[2022-05-16] MEDS ORDERED: Dibucaine 1% OINT 28.35 GM TUBE PR PRN (09:17)
[2022-05-16] MEDS ORDERED: Glycerin ADULT 2.4 gm SUPP PR PRN (09:17)
[2022-05-16] MEDS ORDERED: Witch Hazel PAD JAR TOPICAL PRN (09:17)
[2022-05-16] MEDS ORDERED: Oxytocin in LR 20,000 MILLI.UNIT/1,000 ML BAG IV SCH (09:30)
[2022-05-16 15:44] LABS: Urine Benzodiazepine Screen None Detected (None Detect); Urine Opiates Screen None Detected (None Detect)
[2022-05-17 07:33] LABS: ABS Lymphocytes 0.9 10^3/ul (1.0-4.8); ABS Monocytes 0.5 10^3/ul (0-0.8); ABS Neutrophils 5.9 10^3/ul (1.5-7.7); Eosinophil % 0.2 %; Hematocrit 31 % (35-47); Lymphocyte % 12.4 %; Mean Corpuscular HGB Conc 33 g/dL (31-36); Mean Corpuscular Hemoglobin 27 pg (27-31); Mean Corpuscular Volume 83 fL (80-97); Mean Platelet Volume 9.2 fL (7.4-10.4); Platelet Count 174 10^3/uL (150-450); Red Blood Count 3.71 10^6 /uL (3.70-4.87); Red Cell Distribution Width 17 % (10-15); White Blood Count 7.3 10^3/uL (3.5-10.8)
[2022-05-17] MEDS ORDERED: Tetan/Diph/Pertus SYR(Tdap) 0.5 ML SYR(BOOSTRIX) use SYR contains LATEX IM ONE (09:00)
[2022-05-17] MEDS: Ondansetron 4 mg VIAL 2 MG/ML 2 ml VIAL IV PRN ×2 (15:02→19:19)
[2022-05-19 08:34] VITALS: BP 101/67
== END 2022-05-19 14:25 | disposition home or self-care (01) | DRG 540 ==
LOC: MCHOB 05:55
PROVIDERS: ADMIT Obstetrics & Gynecology; ATTEND Obstetrics & Gynecology